=== PATIENT | male | born 1945 | race Hispanic/Latino ===

== ENCOUNTER 2018-03-23 10:56 | Outpatient (RCR) | payer MEDICARE | END 2018-04-09 | LOC: PT 10:56 | PROVIDERS: ATTEND Internal Medicine | DX: M45.2 Ankylosing spondylitis of cervical region (principal); M54.2 Cervicalgia; M53.82 Other specified dorsopathies, cervical region; M62.81 Muscle weakness (generalized); R26.9 Unspecified abnormalities of gait and mobility; R29.3 Abnormal posture; R26.81 Unsteadiness on feet | CPT/HCPCS: 97110 ×2; 97163; G8978; G8979 ==

== ENCOUNTER 2018-10-20 11:34 | Emergency (ER) | payer MEDICARE ==
[~2018-10-20] VITALS: Ht 170.2 cm; Wt 68.0 kg
[2018-10-20 12:48] LABS: BASOPHILS % 0.2 % (0.0-1.0); EOSINOPHILS # (AUTO) 0.1 (0.0-0.4); EOSINOPHILS % 1.1 % (0.0-6.0); HEMATOCRIT 35.8 % (38.2-49.6); HEMOGLOBIN 10.5 g/dL (14.0-18.0); LYMPHOCYTES # (AUTO) 0.9 (1.0-3.2); LYMPHOCYTES % 9.6 % (18.0-39.1); MEAN CORPUSCULAR HEMOGLOBIN 21.4 pg (28-32); MEAN CORPUSCULAR HGB CONC 29.3 g/dL (31-35); MEAN CORPUSCULAR VOLUME 72.9 fL (81-99); MONOCYTES # (AUTO) 0.8 (0.2-0.8); MONOCYTES % 8.5 % (4.4-11.3); NEUTROPHILS # (AUTO) 7.2 (2.1-6.9); NEUTROPHILS % 80.4 % (38.7-80.0); PLATELET COUNT 140 x10e3/uL (140-360); RED BLOOD COUNT 4.91 x10e6/uL (4.3-5.7); RED CELL DISTRIBUTION WIDTH 23.7 % (11.7-14.4)
[2018-10-20] MEDS ORDERED: ONDANSETRON HCL INJ 2MG/ML 2ML 2 MG/ML VIAL IV STA (12:50)
[2018-10-20] MEDS ORDERED: HYDROMORPHONE 2MG/ML 2 MG/ML ML IV ONE (13:00)
[2018-10-20] MEDS ORDERED: DIATRIZOATE MEGL/DIATRIZOA SOD 30 ML BTL PO ONE (13:05)
[2018-10-20 14:08] LABS: ALBUMIN 3.3 g/dL (3.5-5.0); ALBUMIN/GLOBULIN RATIO 0.7 (0.8-2.0); ANION GAP 14.1 mmol/L (8-16); CALCIUM 9.8 mg/dL (8.4-10.2); CREATININE, SERUM 5.28 mg/dL (0.72-1.25); POTASSIUM 4.1 mmol/L (3.5-5.1)
[2018-10-20 14:28] LABS: AMYLASE 95 U/L (25-125); LIPASE 36 U/L (8-78)
--- NOTE | 2018-10-20 17:08 | Diagnostic Imaging Report ---
EXAM: CT ABDOMEN AND PELVIS without IV CONTRAST DATE: 10/20/2018 Time stamp on Exam: 2:35 PM INDICATION: Abdominal pain COMPARISON: None TECHNIQUE: The abdomen and pelvis were scanned using a multidetector helical scanner. Coronal and sagittal reformations were obtained. Routine protocol performed. Technique manipulation was accomplished to maintain the lowest dose possible to the patient. IV Contrast: None Oral Contrast: Gastrografin intermixed with water Radiation Dose: Total DLP 341.91 mGy*cm Estimated effective dose: DLP x 0.015 x size factor FINDINGS: LOWER THORAX: No consolidations or nodules. Mitral annulus calcification. Tiny bilateral pleural effusions. Bibasilar atelectasis and increased pulmonary vascularity. LIVER: No masses BILIARY: The gallbladder is unremarkable. No ductal dilatation. SPLEEN: No masses PANCREAS: No masses ADRENALS: No nodules KIDNEYS: Small bilateral atrophic kidneys. GI TRACT: No distention, wall thickening or evidence of obstruction. There is a duodenal diverticulum. VESSELS: Vascular calcification. PERITONEUM/RETROPERITONEUM: No free air or fluid LYMPH NODES: No lymphadenopathy REPRODUCTIVE ORGANS: Massive prostate enlargement measuring up to 6.7 cm. BLADDER: Bladder wall thickening with a Brady catheter present. SOFT TISSUES: Bilateral fat-containing inguinal hernias. BONES: No suspicious bone lesions. IMPRESSION: 1. Massive prostate enlargement. 2. Diffuse urinary bladder wall thickening. 3. Small atrophic kidneys compatible with end-stage renal disease. Signed by: Dr. Tyrese Gonzalez DO on 10/20/2018 5:05 PM
--- NOTE | 2018-10-20 17:10 | NUR ---
RECEIVED REPORT FROM MIGEL ARREOLA. ASSUMED CARE AT THIS TIME, RESTING IN STRETCHER, BREATHING EVEN/UNLABORED, NO NEEDS VOICED AT THIS TIME.
[2018-10-20] MEDS ORDERED: HYDRALAZINE HCL 20 MG/ML VIAL IV STA (17:35)
[2018-10-20 18:07] VITALS: BP 140/47
== END 2018-10-20 18:45 | disposition home or self-care (01) ==
LOC: ER 11:34
DX: R10.32 Left lower quadrant pain (principal); N30.21 Other chronic cystitis with hematuria; E11.22 Type 2 diabetes mellitus with diabetic chronic kidney disease; I12.0 Hypertensive chronic kidney disease with stage 5 chronic kidney disease or end stage renal disease; N18.6 End stage renal disease; E78.5 Hyperlipidemia, unspecified
CPT/HCPCS: 36415; 74176; 80053; 82150; 83690; 85025; 93005; 99284; J0360; J1170; J2405

== ENCOUNTER → 2019-04-26 | Outpatient (CLI) | payer MEDICARE, OTHER ==
[~2019-04-26] MED LIST: AMLODIPINE BESY10 MG PO; B1 PO; CARVEDILOL12.5 MG PO; CLONIDINE HCL0.1 MG PO; FOLIC ACID-VIT1 EAC1 PO; GABAPENTIN100 MG PO; HYDRALAZINE HCL25 MG PO; HYDROXYCHLOROQ200 MG PO; LOSARTAN POTAS100 MG PO; NIFEDIPINE ER30 M1 PO; OMEPRAZOLE40 MG PEG; PRAVASTATIN SOD20 MG PO; SENEXON-S 50-81 EACH PO; TYLENOL WITH C1 EACH PO
--- NOTE | 2019-04-26 15:36 | Diagnostic Imaging Report ---
EXAM: US ABDOMEN COMPLETE DATE: 04/26/2019 2:29 PM INDICATION: Left upper quadrant pain COMPARISON: CT abdomen/pelvis without contrast from 10/20/2018 FINDINGS: The pancreas is not well-visualized secondary to prominent midline bowel gas. The liver is normal in size measuring 13.6 cm in length. Hepatic echogenicity is within normal limits. No focal hepatic abnormalities identified. The main portal vein is patent with antegrade flow and diameter of 1.0 cm, within normal limits. The gallbladder is unremarkable without evidence for shadowing stones, wall thickening, or pericholecystic fluid. There is no intra or extra hepatic biliary ductal dilatation. The common bile duct measures 5 mm. Sonographic Nguyen's sign is negative. The spleen is normal in size measuring 11.1 cm in length and demonstrates an unremarkable atrophic appearance. The kidneys are atrophic measuring 7.0 cm in length on the right and 7.0 cm in length and left with cortical thinning noted bilaterally. There is no evidence for solid renal mass, hydronephrosis, or shadowing calculi. The IVC and aorta are not well-visualized secondary to prominent midline bowel gas. There is no ascites present. IMPRESSION: Atrophic kidneys. Otherwise, unremarkable abdominal ultrasound examination, noting limited evaluation of midline structures secondary to prominent overlying bowel gas. Signed by: Dr. Rey Cabello MD on 04/26/2019 3:33 PM
== END ==
LOC: US 09:49
PROVIDERS: ATTEND Internal Medicine
DX: R10.12 Left upper quadrant pain (principal)
CPT/HCPCS: 76700

== ENCOUNTER 2019-05-01 14:54 | Inpatient (IN) | payer MEDICARE, OTHER ==
[~2019-05-01] VITALS: Ht 170.2 cm; Wt 67.1 kg
--- OUTSIDE RECORDS SUMMARY | 2019-05-01 14:55 | XMS REPORT ---
Author Author [facility] Organization [facility] Address Unknown Phone Unavailable Care Team Providers Care Chuck Splitter Name Role Phone Kashmir SORENSEN Unavailable Unavailable Gabriella BELL Unavailable Unavailable Payers Payer Name Policy Type Policy Number Effective Date Expiration Date Problems This patient has no known problems. Allergies, Adverse Reactions, Alerts Allergy Name Allergy Type Status Severity Reaction(s) Onset Date Inactive Date Treating Clinician Comments No Known Allergies DA Active U 2017-12-14 00:00:00 Medications This patient has no known medications. Encounters Start Date/Time End Date/Time Encounter Type Admission Type Attending Clinicians Care Facility Care Department Encounter ID 2018-10-21 02:21:00 2018-10-21 02:21:00 Outpatient [facility] [id number] Results Test Description Test Time Test Comments Text Results Atomic Results Result Comments US ABDOMEN COMPLETE 2019-04-26 15:30:[address] [address] Patient Name: Mikki JOHNSON MR #: [id number] : 1945 Age/Sex: 73/M Req #: [id number] Adm Physician: Ordered by: CESAR SORENSEN MD Report #: [id number] Location: US Room/Bed: Procedure: [id number] US/US ABDOMEN COMPLETE Exam Date: 04/26/19 Exam Time: 1445 REPORT STATUS: Signed EXAM: US ABDOMEN COMPLETE DATE: 04/26/2019 2:29 PM INDICATION: Left upper quadrant pain COMPARISON: CT abdomen/pelvis without contrast from 10/20/2018 FINDINGS: The pancreas is not well-visualized secondary to prominent midline bowel gas. The liver is normal in size measuring 13.6 cm in length. Hepatic echogenicity is within normal limits. No focal hepatic abnormalities identified. The main portal vein is patent with antegrade flow and diameter of 1.0 cm, within normal limits. The gallbladder is unremarkable without evidence for shadowing stones, wall thickening, or pericholecystic fluid. There is no intra or extra hepatic biliary ductal dilatation. The common bile duct measures 5 mm. Sonographic Nguyen's sign is negative. The spleen is normal in size measuring 11.1 cm in length and demonstrates an unremarkable atrophic appearance. The kidneys are atrophic measuring 7.0 cm in length on the right and 7.0 cm in length and left with cortical thinning noted bilaterally. There is no evidence for solid renal mass, hydronephrosis, or shadowing calculi. The IVC and aorta are not well-visualized secondary to prominent midline bowel gas. There is no ascites present. IMPRESSION: Atrophic kidneys. Otherwise, unremarkable abdominal ultrasound examination, noting limited evaluation of midline structures secondary to prominent overlying bowel gas. Signed by: Dr. Rey Cabello MD on 04/26/2019 3:33 PM Dictated By: REY CABELLO MD 1533 Transcribed By: EULOGIO on 04/26/19 1533 COPY TO: CESAR SORENSEN MD CT ABDOMEN/PELVIS WO 2018-10-20 16:56:00 [place] [address] Patient Name: Mikki JOHNSON MR #: [id number] : 1945 Age/Sex: 73/M Req #: [id number] Adm Physician: Ordered by: CLAUDIA BELL MD Report #: [id number] Location: ER Room/Bed: Procedure: [id number] CT/CT ABDOMEN/PELVIS WO Exam Date: 10/20/18 Exam Time: 1509 REPORT STATUS: Signed EXAM: CT ABDOMEN AND PELVIS without IV CONTRAST DATE: 10/20/2018 Time stamp on Exam: 2:35 PM INDICATION: Abdominal pain COMPARISON: None TECHNIQUE: The abdomen and pelvis were scanned using a multidetector helical scanner. Coronal and sagittal reformations were obtained. Routine protocol performed. Technique manipulation was accomplished to maintain the lowest dose possible to the patient. IV Contrast: None Oral Contrast: Gastrografin intermixed with water Radiation Dose: Total DLP 341.91 mGy*cm Estimated effective dose: DLP x 0.015 x size factor FINDINGS: LOWER THORAX: No consolidations or nodules. Mitral a nnulus calcification. Tiny bilateral pleural effusions. Bibasilar atelectasis and increased pulmonary vascularity. LIVER: No masses BILIARY: The gallbladder is unremarkable. No ductal dilatation. SPLEEN: No masses PANCREAS: No masses ADRENALS: No nodules KIDNEYS: Small bilateral atrophic kidneys. GI TRACT: No distention, wall thickening or evidence of obstruction. There is a duodenal diverticulum. VESSELS: Vascular calcification. PERITONEUM/RETROPERITONEUM: No free air or fluid LYMPH NODES: No lymphadenopathy REPRODUCTIVE ORGANS: Massive prostate enlargement measuring up to 6.7 cm. BLADDER: Bladder wall thickening with a Brady catheter present. SOFT TISSUES: Bilateral fat-containing inguinal hernias. BONES: No suspicious bone lesions. IMPRESSION: 1. Massive prostate enlargement. 2. Diffuse urinary bladder wall thickening. 3. Small atrophic kidneys compatible with end-stage renal disease. Signed by: Dr. Brynn Gonzalez DO on 10/20/2018 5:05 PM Dictated By: BRYNN GONZALEZ DO 04 Transcribed By: EULOGIO on 10/20/181704 COPY TO: CLAUDIA BELL MD
[2019-05-01] MEDS ORDERED: ALBUTEROL/IPRATROPIUM 3 ML NEB NEB ONE (15:15)
--- NOTE | 2019-05-01 15:21 | NUR ---
PATIENT TO ROOM 1521. R.T.CALLED FOR BREATHING TX
--- NOTE | 2019-05-01 15:41 | NUR ---
PATIENT BREATHING TX COMPLETE
[2019-05-01] MEDS ORDERED: HYDRALAZINE HCL 20 MG/ML VIAL IV ONE (15:45)
[2019-05-01 15:59] LABS: BASOPHILS % 0.5 % (0.0-1.0); EOSINOPHILS # (AUTO) 0.2 (0.0-0.4); EOSINOPHILS % 2.9 % (0.0-6.0); HEMATOCRIT 38.5 % (38.2-49.6); HEMOGLOBIN 11.5 g/dL (14.0-18.0); LYMPHOCYTES # (AUTO) 1.1 (1.0-3.2); MEAN CORPUSCULAR HEMOGLOBIN 24.9 pg (28-32); MEAN CORPUSCULAR HGB CONC 29.9 g/dL (31-35); MEAN CORPUSCULAR VOLUME 83.5 fL (81-99); MONOCYTES # (AUTO) 0.6 (0.2-0.8); MONOCYTES % 8.6 % (4.4-11.3); NEUTROPHILS # (AUTO) 4.7 (2.1-6.9); NEUTROPHILS % 71.7 % (38.7-80.0); PLATELET COUNT 150 x10e3/uL (140-360); RED BLOOD COUNT 4.61 x10e6/uL (4.3-5.7); RED CELL DISTRIBUTION WIDTH 19.2 % (11.7-14.4)
[2019-05-01 16:08] LABS: INR 0.94; PROTHROMBIN TIME 13.1 seconds (11.9-14.5)
[2019-05-01 16:09] LABS: PARTIAL THROMBOPLASTIN TIME 31.8 seconds (23.8-35.5)
[2019-05-01 16:18] LABS: ALBUMIN 3.5 g/dL (3.5-5.0); ALBUMIN/GLOBULIN RATIO 0.9 (0.8-2.0); ANION GAP 20.9 mmol/L (8-16); CALCIUM 9.2 mg/dL (8.4-10.2); CREATININE, SERUM 7.65 mg/dL (0.72-1.25); POTASSIUM 5.9 mmol/L (3.5-5.1)
[2019-05-01 16:25] LABS: CREATINE KINASE MB 1.9 ng/mL (0-5.0)
[2019-05-01] MEDS ORDERED: CLONIDINE HCL 0.1 MG TAB PO ONE (16:30)
--- NOTE | 2019-05-01 16:31 | Diagnostic Imaging Report ---
EXAMINATION: PA and lateral views of the chest. COMPARISON: None CLINICAL HISTORY: Shortness of breath for a few weeks DISCUSSION: Lines/tubes: None. Lungs: Lungs are well-inflated. Mild bilateral interstitial opacities extending from the rebeca consistent with interstitial pulmonary edema.. Bilateral basal compressive atelectasis. Pleura: Bilateral small pleural effusions. Heart and mediastinum: Prominent cardiac silhouette , which may be partly due to AP projection. Central pulmonary venous congestion Bones and soft tissues: No acute bony abnormalities. Degenerative changes in the thoracic spine. Partially visualized fusion hardware in the lower cervical/upper thoracic spine. Degenerative changes in bilateral glenohumeral joints. IMPRESSION: Findings likely represent decompensated CHF. Signed by: Dr. Sreekanth Cartwright M.D. on 05/01/2019 4:27 PM
[2019-05-01] MEDS ORDERED: SODIUM CHLORIDE FLUSH 10 ML SYR INJ PRN (18:15)
[2019-05-01] MEDS ORDERED: DEXTROSE 50% SYRINGE 50 ML IV PRN (19:15)
[2019-05-01] MEDS ORDERED: SOD POLYSTYRENE SULFONATE SUSP 15 GM/60 ML BTL PO ONE (19:15)
--- NOTE | 2019-05-01 19:18 | NUR ---
Collin SORENSEN IN ER EVALUATING PATIENT. HE IS COVERING FOR Felipa SORENSEN
[2019-05-01 19:45] VITALS: BP 202/70
[2019-05-01] MEDS: HYDRALAZINE HCL 20 MG/ML VIAL IV PRN (20:45)
[2019-05-01] MEDS: INSULIN REGULAR, HUMAN 100 UNIT/1 ML 3ML VIAL SQ SCH (20:55)
[2019-05-01 21:55] VITALS: BP 170/70
[2019-05-01] MEDS ORDERED: PRAVASTATIN SOD20 MG PO (23:16)
[2019-05-01] MEDS ORDERED: B1 PO (23:16)
[2019-05-01] MEDS ORDERED: CARVEDILOL12.5 MG PO (23:16)
[2019-05-01] MEDS ORDERED: CLONIDINE HCL0.1 MG PO (23:16)
[2019-05-01] MEDS ORDERED: HYDROXYCHLOROQ200 MG PO (23:16)
[2019-05-01] MEDS ORDERED: NIFEDIPINE ER30 M1 PO (23:16)
[2019-05-01] MEDS ORDERED: AMLODIPINE BESY10 MG PO (23:16)
[2019-05-01] MEDS ORDERED: SENEXON-S 50-81 EACH PO (23:16)
[2019-05-01] MEDS ORDERED: LOSARTAN POTAS100 MG PO (23:16)
[2019-05-01] MEDS ORDERED: GABAPENTIN100 MG PO (23:16)
[2019-05-01] MEDS ORDERED: OMEPRAZOLE40 MG PEG (23:16)
[2019-05-01] MEDS ORDERED: TYLENOL WITH C1 EACH PO (23:16)
[2019-05-01] MEDS ORDERED: FOLIC ACID-VIT1 EAC1 PO (23:16)
[2019-05-01] MEDS ORDERED: HYDRALAZINE HCL25 MG PO (23:16)
[2019-05-02] VITALS (10 sets, daily range): BP systolic 154–213; BP diastolic 64–85
[2019-05-02 00:48] LABS: CREATINE KINASE 38 IU/L (30-200)
--- NOTE | 2019-05-02 01:59 | History and Physical ---
CHIEF COMPLAINT: Shortness of breath and very high blood pressure. HISTORY OF PRESENT ILLNESS: This is a 73-year-old male with past medical history of end-stage renal disease, on hemodialysis, diabetes mellitus, hypertension, hyperlipidemia, GERD, diabetic neuropathy. He was in his restroom until the patient has increasing shortness of breath yesterday and today and a very high blood pressure. No headache. No dizziness. No chest pain. No abdominal pain. No nausea, no vomiting. No hematochezia. No melena. No leg swelling. No backache. No burning urination. ALLERGIES: NO KNOWN DRUG ALLERGIES. PAST MEDICAL HISTORY: 1. Diabetes mellitus, type 2. 2. Hypertension. 3. Hyperlipidemia. 4. GERD. 5. End-stage renal disease, on hemodialysis. 6. Diabetic neuropathy. PAST SURGICAL HISTORY: History of C-spine surgery. HABITS: Denies smoking. Denies alcohol use. Denies illicit drug use. MEDICATIONS: Medication list attached. FAMILY HISTORY: Not available. REVIEW OF SYSTEMS: CONSTITUTIONAL: Denies fatigue or weakness. HEENT: No diplopia. No blurring of vision. CARDIOPULMONARY: No chest pain. Has some shortness of breath. No cough. ALIMENTARY SYSTEM: No nausea or vomiting. No diarrhea. No constipation. GENITOURINARY SYSTEM: No dysuria. No hematuria. MUSCULOSKELETAL: No joint pain. CENTRAL NERVOUS SYSTEM: No focal weakness. PHYSICAL EXAMINATION: GENERAL: This is a 73-year-old male, who is alert and oriented x3, in no gross distress. VITAL SIGNS: Temperature 98.2, pulse 80, respiratory rate 18, and blood pressure 130/80. HEENT: Head is atraumatic and normocephalic. Pupils bilaterally equal to light. Extraocular muscles intact. NECK: Supple. No JVD. No carotid bruit. LUNGS: Air entry fair. Bilateral rhonchi bilaterally. ABDOMEN: Soft, nontender. No guarding. No rigidity. EXTREMITIES: No pedal edema. Peripheral pluses +1. AUTOMOBILE BODY REPAIRER: Grossly nonfocal. LABORATORY DATA: Potassium 5.6. ASSESSMENT: 1. Shortness of breath, may be from volume overload, may be from congestive heart failure. 2. Uncontrolled hypertension. 3. Diabetes mellitus, type 2. 4. Gastroesophageal reflux disease. 5. Diabetic neuropathy. 6. Hyperlipidemia. PLAN: Admit the patient to medical floor. Nephrology consult with Dr. Jenkins and Cullen. The patient may need dialysis. Kayexalate now, hydralazine, and clonidine p.r.n. for hypertension. Continue all home medicine. Case discussed with the ER doctor. Case discussed with the patient, total condition, and prognosis. MD SALLY Stewart/SCOTT /[id number]
[2019-05-02] MEDS: HYDRALAZINE HCL 20 MG/ML VIAL IV PRN ×2 (05:33→17:15)
[2019-05-02] MEDS: CLONIDINE HCL 0.1 MG TAB PO PRN ×2 (06:41→15:23)
--- NOTE | 2019-05-02 07:00 | NUR ---
RECEIVED PATIENT ASLEEP AT THIS TIME NO S/S OF DISTRESS. BED LOW, WHEELS LOCKED, SIDE RAILS X2. CALL LIGHT IN REACH WILL CONTINUE TO MONITOR PATIENT.
[2019-05-02] MEDS: INSULIN REGULAR, HUMAN 100 UNIT/1 ML 3ML VIAL SQ SCH ×4 (07:30→20:04)
[2019-05-02 08:06] LABS: BASOPHILS % 0.7 % (0.0-1.0); EOSINOPHILS # (AUTO) 0.2 (0.0-0.4); EOSINOPHILS % 2.9 % (0.0-6.0); HEMATOCRIT 36.7 % (38.2-49.6); HEMOGLOBIN 10.9 g/dL (14.0-18.0); LYMPHOCYTES # (AUTO) 0.9 (1.0-3.2); LYMPHOCYTES % 15.8 % (18.0-39.1); MEAN CORPUSCULAR HEMOGLOBIN 24.7 pg (28-32); MEAN CORPUSCULAR HGB CONC 29.7 g/dL (31-35); MEAN CORPUSCULAR VOLUME 83.2 fL (81-99); MONOCYTES # (AUTO) 0.6 (0.2-0.8); MONOCYTES % 9.4 % (4.4-11.3); NEUTROPHILS # (AUTO) 4.2 (2.1-6.9); NEUTROPHILS % 70.9 % (38.7-80.0); PLATELET COUNT 164 x10e3/uL (140-360); RED BLOOD COUNT 4.41 x10e6/uL (4.3-5.7); RED CELL DISTRIBUTION WIDTH 19.5 % (11.7-14.4)
[2019-05-02 08:32] LABS: ANION GAP 20.3 mmol/L (8-16); CALCIUM 8.9 mg/dL (8.4-10.2); CREATININE, SERUM 8.84 mg/dL (0.72-1.25); POTASSIUM 5.3 mmol/L (3.5-5.1)
--- NOTE | 2019-05-02 10:05 | NUR ---
SPOKE WITH CONSULT, DR. CABRAL. PATIENT TO HAVE STAT DIALYSIS. DIALYSIS CENTER CALLED AND MADE AWARE.
--- NOTE | 2019-05-02 10:25 | NUR ---
PATIENT SIGNED CONSENT FOR DIALYSIS. CULTURAL LINK USED FOR INTERPRETATION. JOSE Quiroz #[id number].
[2019-05-02] MEDS ORDERED: SODIUM CHLORIDE 0.9% 1000ML 2,000 ML ONE (11:47)
--- NOTE | 2019-05-02 12:37 | NUR ---
Nutrition Screen Note RD Recommendation for Physician: -Continue current diet per MD. Plan of Care: RD following, monitoring for tolerance and adequacy. Educational handout provided. Nutrition reason for involvement: Diagnosis- CHF Primary Diagnose(s):CHF PMH: end-stage renal disease, on hemodialysis, diabetes mellitus, hypertension, hyperlipidemia, GERD, diabetic neuropathy. Ht: 67 in Wt: 153 lb BMI:24 kg/m2 IBW: [address] Assessment: 05/02: 73 YOM admitted for CHF with PMH listed above. The pt is [place] speaking, used cultural link and INDUSTRIAL MAINTENANCE TECHNICIAN to help translate. Pt was seen consuming his breakfast without any difficulty. He denied a poor appetite and denied any nausea, LBM: 05/02. Pt was given educational handout regarding low Na diet in [place]. Pt denied any food allergies. Plan is for dialysis today. Chart reviewed. Labs and meds reviewed. BS was low this moring- was given juice and ate breakfast-POC GM is now 133. Will continue to monitor. Current Diet: renal DM Malnutrition Evaluation (05/02) The patient does not meet criteria for a specified degree of malnutrition at this time. Will re-evaluate at follow-up as appropriate. Diet Education Needs Assessment: Diet education indicated, pt accepted handout. Diet Adequacy: (Meeting calorie needs, Meeting protein needs Learner(s): pt Barriers: none Cultural/Language Modifications:pt speaks [place], wood experimental mechanic was used Readiness: acceptance Method: discussion, handout Topics: Low Na Diet Understanding/Compliance: verbalized understanding, anticipate fair compliance Nutrition Care Level: low Signed: Verena Flynn, RD, LD
--- NOTE | 2019-05-02 15:35 | NUR ---
WOUND CARE CONSULT FOR 47 YO FEMALE CA, PULMONARY EMBOLISM DELFINA 15 ON MODERATE PUP AND ALTERNATING PRESSURE SKIN ASSESSMENT COMPLETE PATIENT PRESENTS WITH HEALING STAGE 2 ULCERATION .5CM X.5CM X .1CM RECOMMENDATIONS : NURSING TO CONTINUE TO MAINTAIN MODERATE PUP STATUS AND INTERVENTIONS AND ALTERNATING PRESSURE SURFACE NURSING TO CONTINUE TO ASSIST PATIENT OUT OF BED FOR MEALS AND MUCH TOLERATED NURSING TO APPLY DAILY VENELEX OINTMENT TO HEALING SACRAL STAGE 2 ULCERATION AND COVER WITH ALLEVYN FOAM DRESSING Addendum: 05/02/19 at 1542 by Enrique Ross RN Amended: Links added.
[2019-05-02] MEDS ORDERED: BALSAM PERU/CASTOR OIL 60 GM OINT...G. TP SCH (17:00)
[2019-05-02 17:35] LABS: CHOL/HDL RATIO 3.9 (3.9-4.7)
[2019-05-02 17:54] LABS: THYROID STIMULATING HORMONE 1.07 uIU/mL (0.350-4.940)
--- NOTE | 2019-05-02 17:54 | Consultation ---
DATE OF CONSULTATION: 05/02/2019 REASON FOR CONSULTATION: CHF. CHIEF COMPLAINT: Shortness of breath. HISTORY OF PRESENT ILLNESS: This is a 73-year-old male with history of diabetes, hypertension, hyperlipidemia, end-stage renal disease on HD therapy for 12 years, diabetic neuropathy, and reflux disease. The patient presents to [facility] ER with complaints of shortness of breath and elevated blood pressure. On arrival, blood pressure 239/102. Chest x-ray showing pulmonary edema, volume overloaded. The patient started on HD therapy. Cardiology was consulted for CHF. The patient is seen in room. Reports has been compliant with the dialysis, however, last dialysis reported on Thursday and over the weekend, was not compliant with his oral intake. Started to feel short of breath on Thursday, therefore he came to the hospital for further evaluation. BNP of note was over 6000 and chest x-ray again showing pulmonary edema. The patient reports now that he is on dialysis, feels much better. Breathing is much easier. The patient denies any chest pains, however, does report he feels very short of breath with minimal activities. PAST MEDICAL HISTORY: Diabetes, hypertension, hyperlipidemia, end-stage renal disease for 12 years Thursday, Thursday, Thursday, neuropathy, and reflux disease. PAST SURGICAL HISTORY: C-spine surgery and left AV fistula. SOCIAL HISTORY: He is . He is disabled. No alcohol or tobacco use. FAMILY HISTORY: Mother of unknown cause. Father with diabetes. ALLERGIES: NO KNOWN ALLERGIES. HOME MEDICATIONS: Include amlodipine 10 mg daily, carvedilol 12.5 mg b.i.d., clonidine 0.1 mg t.i.d. as needed, gabapentin 100 mg t.i.d., hydralazine 50 mg q.12, hydroxychloroquine 200 mg twice a week, losartan 100 mg daily, nifedipine ER 60 mg daily, omeprazole 40 mg daily, and pravastatin 20 mg daily. REVIEW OF SYSTEMS: GENERAL: Denies any weight changes, fatigue, weakness, fevers, chills, or night sweats. SKIN: No rashes or sores. HEENT: Denies any nausea, vomiting, blurry vision, dizziness, earaches, tinnitus, epistaxis, sore throat, or swollen neck. CARDIAC: Denies any chest pain, however, dyspnea on exertion. Positive for orthopnea. Positive for PND. Denies any lower extremity edema. RESPIRATORY: Positive shortness of breath. Positive for productive cough. Denies any hemoptysis. GI: Denies any nausea, vomiting, diarrhea, constipation, melena, hematochezia, bloody or tarry stools. VASCULAR: Denies any lower extremity edema or claudication. MUSCULOSKELETAL: Reports generalized muscle weakness and joint pains, back pains. NEUROLOGIC: Positive for numbness and tingling in lower extremities. Denies any paralysis, weakness, fainting, or seizures. HEMATOLOGY: Denies any bruising or anemia. ENDOCRINE: Denies any heat or cold intolerance, polyuria, polydipsia, or polyphagia. PHYSICAL EXAMINATION: VITAL SIGNS: Height 67 inches, weight 152 pounds, BMI 24, temperature 97.0, pulse 66, respiratory rate 20, blood pressure 183/79, and pulse ox 100% on 2 L nasal cannula. GENERAL: Poor historian. No acute distress. Also appears chronically ill. SKIN: No rashes or bruises noted. HEENT: Normocephalic. Pupils are equal and reactive. Extraocular movements intact. Trachea midline. Oral mucosa pink. No JVD. No carotid bruit noted. HEART: Regular rate and rhythm. No murmurs, rubs, clicks, or gallops. PMI 4th, 5th intercostal space. LUNGS: Bilateral breath sounds at bases with crackles. No wheezes noted. ABDOMEN: Soft, nontender, and nondistended. No organomegaly noted. MUSCULOSKELETAL: Good muscle strength throughout. No lower extremity edema. VASCULAR: +2 bilateral radial pulses, +1 DP, PT pulses bilaterally. Also left upper extremity AV fistula with positive bruit and thrill. NEUROLOGIC: Cranial nerves 2 through 12 seem intact. LABORATORY DATA: Sodium 141, potassium 5.9, chloride 99, bicarb 27, BUN 47, creatinine 7.6, and glucose 118. BNP 6,740. Troponin 0.041, next less than 0.05, next 0.079. White count 5, hemoglobin 11, hematocrit 38, and platelets 150. PT 13, INR 0.9, and PTT 31.8. Chest x-ray showing interstitial pulmonary edema. ASSESSMENT AND PLAN: 1. Volume overload. 2. End-stage renal disease. 3. Hypertensive urgency. 4. Hyperlipidemia. 5. Diabetes. 6. Anginal equivalent symptoms in the patient with very likely has coronary artery disease. PLAN: 1. The patient presents to [facility] with complaints of shortness of breath, hypertensive, volume overload, has been started on HD therapy. Reports breathing much better since HD therapy has been started. However, the patient does report anginal equivalent symptoms, very likely the patient has CAD given his multiple risk factors. 2. We will get echo to evaluate heart function and structure. 3. We will go ahead and do a nuclear stress test in the a.m. 4. Obtain lipid and TSH level. 5. Continue telemonitoring. 6. Antihypertensive therapy. 7. Further recommendations as clinical course dictates. Thank you very much for this consult. SEEN AND EXAMINED AGREE WITH NOTE Dictated by Cameron Grover NP Mansi Good MD DC/SCOTT /[id number] KEHINDE
[2019-05-02 17:58] LABS: CREATINE KINASE 48 IU/L (30-200)
--- NOTE | 2019-05-02 20:17 | Diagnostic Imaging Report ---
EXAM: Abdomen 2 Views INDICATION: ^PAIN ^[id number] ^[id number] COMPARISON: Abdominal ultrasound 04/26/[address] abdomen and pelvis 10/20/2018, chest radiograph 05/01/2019 FINDINGS: Lines/tubes: None. Moderate amount of stool in the colon. No dilated loops of small bowel. No renal calculi. No abnormal soft tissue masses. Mild degenerative changes in the lumbar spine and pelvis. Small left pleural effusion. IMPRESSION: No acute abnormalities. Signed by: Dr. Samantha Alvarado M.D. on 05/02/2019 8:14 PM
[2019-05-03 00:37] VITALS: BP 167/73
[2019-05-03 04:00] VITALS: BP 224/86
[2019-05-03] MEDS: CLONIDINE HCL 0.1 MG TAB PO PRN ×2 (04:49→12:16)
[2019-05-03 05:42] LABS: BASOPHILS % 0.4 % (0.0-1.0); EOSINOPHILS # (AUTO) 0.1 (0.0-0.4); EOSINOPHILS % 2.6 % (0.0-6.0); HEMATOCRIT 38.2 % (38.2-49.6); HEMOGLOBIN 11.4 g/dL (14.0-18.0); LYMPHOCYTES # (AUTO) 1.2 (1.0-3.2); LYMPHOCYTES % 22.7 % (18.0-39.1); MEAN CORPUSCULAR HEMOGLOBIN 24.8 pg (28-32); MEAN CORPUSCULAR HGB CONC 29.8 g/dL (31-35); MEAN CORPUSCULAR VOLUME 83.2 fL (81-99); MONOCYTES # (AUTO) 0.7 (0.2-0.8); MONOCYTES % 14.6 % (4.4-11.3); NEUTROPHILS % 59.3 % (38.7-80.0); PLATELET COUNT 153 x10e3/uL (140-360); RED BLOOD COUNT 4.59 x10e6/uL (4.3-5.7); RED CELL DISTRIBUTION WIDTH 18.8 % (11.7-14.4)
[2019-05-03 06:08] LABS: ALBUMIN 3.2 g/dL (3.5-5.0); ALBUMIN/GLOBULIN RATIO 0.9 (0.8-2.0); ANION GAP 19.1 mmol/L (8-16); CREATININE, SERUM 4.82 mg/dL (0.72-1.25); POTASSIUM 5.1 mmol/L (3.5-5.1)
[2019-05-03] MEDS: INSULIN REGULAR, HUMAN 100 UNIT/1 ML 3ML VIAL SQ SCH ×2 (07:30→11:30)
[2019-05-03 08:04] VITALS: BP 182/76
[2019-05-03 08:05] VITALS: BP 182/76
[2019-05-03] MEDS ORDERED: REGADENOSON 0.4 MG/5 ML SYR IV ONE (08:06)
[2019-05-03 11:54] VITALS: BP 222/93
[2019-05-03] MEDS ORDERED: CLOPIDOGREL BISULFATE 75 MG TAB PO ONE (12:00)
--- NOTE | 2019-05-03 12:09 | Operative Report ---
DATE OF PROCEDURE: SURGEON: Mansi Good MD PROCEDURE: Nuclear cardiac stress test. ACQUISITION NUMBER: [id number] TECHNICAL DETAILS: This was Lexiscan nuclear cardiac stress test for the resting images. The patient was given a total of 11 mCi of Myoview. Half an hour after injection, proper SPECT imaging and scanning were done. For the stress images, the patient was given Lexiscan 0.4 mg intravenously followed by 33 mCi of Myoview. Proper SPECT imaging and scanning were done after the procedures. There were no complication and the patient tolerated the procedure. RESULTS: A. Hemodynamic or stress test; the protocol is Lexiscan. The patient's heart rate remained stable from 61 to 74 per minute. Blood pressure remained stable at 150/63. No EKG changes. B. Myocardial perfusion imaging or nuclear stress testing; 1. A. Myocardial perfusion;. a. a. Resting images. Resting images showed normal smooth distribution in the isotope in all segment. b. B. Stress images; showed abnormal uptake of the isotope in all the segment more noted in the inferior lateral and anterior segment with transit ischemic dilatation of the left ventricle. Segmental wall motion; there are no segmental wall motion abnormality. 1. B. Heart volume. Left ventricular ejection fraction of 52%. IMPRESSION: Very high risk nuclear cardiac stress testing with preserved left ventricular systolic function. RECOMMENDATION: Cardiac catheterization. MD JANIA Forbes/MODL /[id number]
[2019-05-03] MEDS ORDERED: HYDROCORTISONE 1% CREAM 30 GM TUBE TOP PRN (14:15)
[2019-05-03] MEDS ORDERED: HYDRALAZINE HCL 25 MG TAB PO SCH (15:00)
[2019-05-03 15:53] VITALS: BP 201/84
--- NOTE | 2019-05-03 16:41 | NUR ---
Via interpreting ipad device, patient and I discussed his plan of care which includes getting his prescriptions filled and start them today, call his pcp and hourly shift the or to follow up for a heart cath per recommendation from his hourly shift. Patient voiced understanding and was able to repeat back to me vis crop picker that he has to call back to md office to follow up and to get his prescriptions filled and take them as directed.
[2019-05-03] MEDS ORDERED: CARVEDILOL 3.125 MG TAB PO SCH (17:00)
--- NOTE | 2019-05-03 18:51 | Discharge Summary ---
This is a 73-year-old male patient of mine, who presented with complaint of shortness of breath and high blood pressure. ADMITTING IMPRESSION AND DIAGNOSES: 1. Volume overload with decompensated congestive heart failure with end-stage renal disease, on hemodialysis. 2. Diabetic neuropathy. 3. Hypertensive heart disease. 4. Hyperlipidemia. 5. Osteoarthritis. HOSPITAL COURSE SUMMARY: The patient was admitted with the above diagnoses. The patient had Nephrology and Cardiology consultations done. The patient had a stress test done, which was positive for multiple poor stress defect involving in inferior and apical area. So, the patient was recommended for cardiac catheterization and the patient probably might have triple-vessel disease. So, the patient electively scheduled for outpatient catheterization, as the patient wanted to go home for the [place]. The patient will be sent home on the Plavix and aspirin, and we will up the carvedilol dose. The patient to follow up as outpatient with me as well as Dr. Good to get outpatient catheterization and further treatment. Avery Rollins MD [facility]/MODL /[id number]
[2019-05-03] MEDS ORDERED: PRAVASTATIN 20 MG TAB PO SCH (21:00)
[2019-05-04] MEDS ORDERED: ASPIRIN 81 MG ENTERIC COATED PO SCH (09:00)
[2019-05-04] MEDS ORDERED: CLOPIDOGREL BISULFATE 75 MG TAB PO SCH (09:00)
[2019-05-04] MEDS ORDERED: NIFEDIPINE CR 30 MG TAB PO SCH (09:00)
--- NOTE | 2019-07-05 09:55 | EXERCISE STRESS TEST ---
DATE OF STUDY: 05/03/2019 00:00:00 Stress Test - Treadmill ONLY PROCEDURE: Nuclear cardiac stress test. ACQUISITION NUMBER: [id number] TECHNICAL DETAILS: This was Lexiscan nuclear cardiac stress test for the resting images. The patient was given a total of 11 mCi of Myoview. Half an hour after injection, proper SPECT imaging and scanning were done. For the stress images, the patient was given Lexiscan 0.4 mg intravenously followed by 33 mCi of Myoview. Proper SPECT imaging and scanning were done after the procedures. There were no complication and the patient tolerated the procedure. RESULTS: A. Hemodynamic or stress test; the protocol is Lexiscan. The patient's heart rate remained stable from 61 to 74 per minute. Blood pressure remained stable at 150/63. No EKG changes. B. Myocardial perfusion imaging or nuclear stress testing; 1. A. Myocardial perfusion;. a. a. Resting images. Resting images showed normal smooth distribution in the isotope in all segment. b. B. Stress images; showed abnormal uptake of the isotope in all the segment more noted in the inferior lateral and anterior segment with transit ischemic dilatation of the left ventricle. 2. B. Heart volume. Left ventricular ejection fraction of 52%. Segmental wall motion; there are no segmental wall motion abnormality. IMPRESSION: Very high risk nuclear cardiac stress testing with preserved left ventricular systolic function. RECOMMENDATION: Cardiac catheterization. MD JANIA Forbes/MODL /[id number]
== END 2019-05-03 16:40 | disposition home or self-care (01) | DRG 291 ==
LOC: ER 14:54 → ERHOLD 18:15 → MED/SURG 19:52
PROVIDERS: ADMIT Internal Medicine; ATTEND Internal Medicine
DX: I13.2 Hypertensive heart and chronic kidney disease with heart failure and with stage 5 chronic kidney disease, or end stage renal disease (principal); N18.6 End stage renal disease; I50.33 Acute on chronic diastolic (congestive) heart failure; E11.22 Type 2 diabetes mellitus with diabetic chronic kidney disease; Z99.2 Dependence on renal dialysis; E11.21 Type 2 diabetes mellitus with diabetic nephropathy; K21.9 Gastro-esophageal reflux disease without esophagitis; E78.5 Hyperlipidemia, unspecified; E11.40 Type 2 diabetes mellitus with diabetic neuropathy, unspecified; Z91.15 Patient's noncompliance with renal dialysis; I16.0 Hypertensive urgency
CPT/HCPCS: 36415; 71046; 74018; 78452; 80048; 80053; 80061; 82550; 82553; 82948; 83880; 84443; 84484; 85025; 85610; 85730; 86704; 86705; 86706; 87340; 90962; 93005; 93017; 93306; 94640; 99284; A9502; J0360; J1817; J7030

== ENCOUNTER 2020-11-14 06:43 | Inpatient (IN) | payer MEDICARE, OTHER ==
[~2020-11-14] VITALS: Ht 170.2 cm; Wt 67.1 kg
[2020-11-14 07:57] LABS: BASOPHILS % 0.4 % (0.0-1.0); EOSINOPHILS # (AUTO) 0.2 (0.0-0.4); EOSINOPHILS % 3.2 % (0.0-6.0); HEMATOCRIT 35.9 % (38.2-49.6); HEMOGLOBIN 11.2 g/dL (14.0-18.0); LYMPHOCYTES # (AUTO) 1.4 (1.0-3.2); LYMPHOCYTES % 27.9 % (18.0-39.1); MEAN CORPUSCULAR HEMOGLOBIN 27.7 pg (28-32); MEAN CORPUSCULAR HGB CONC 31.2 g/dL (31-35); MEAN CORPUSCULAR VOLUME 88.9 fL (81-99); MONOCYTES # (AUTO) 0.5 (0.2-0.8); MONOCYTES % 10.3 % (4.4-11.3); NEUTROPHILS # (AUTO) 2.9 (2.1-6.9); PLATELET COUNT 252 x10e3/uL (140-360); RED BLOOD COUNT 4.04 x10e6/uL (4.3-5.7); RED CELL DISTRIBUTION WIDTH 14.1 % (11.7-14.4)
[2020-11-14] MEDS ORDERED: SODIUM CHLORIDE 0.9% 250ML 250 ML ONE ×2 (08:17→21:53)
[2020-11-14] MEDS ORDERED: IOPAMIDOL 370 MG/ML 200 ML INFUS..BTL INJ ONE (08:17)
[2020-11-14 08:32] LABS: ALBUMIN 3.4 g/dL (3.5-5.0); ANION GAP 20.2 mmol/L (8-16); CALCIUM 8.5 mg/dL (8.4-10.2); CREATININE, SERUM 9.6 mg/dL (0.72-1.25); MAGNESIUM 2.6 MG/DL (1.3-2.1); POTASSIUM 5.2 mmol/L (3.5-5.1)
[2020-11-14 08:33] LABS: ALBUMIN/GLOBULIN RATIO 0.8 (0.8-2.0)
[2020-11-14 08:49] LABS: CLARITY,URINE TURBID (CLEAR); COLOR,URINE RED (YELLOW); KETONES,URINE 1+ (NEGATIVE); LEUKOCYTE ESTERASE ,URINE LARGE (NEGATIVE); NITRITE,URINE POSITIVE (NEGATIVE); PROTEIN,URINE DIPSTICK >=300 (NEGATIVE)
[2020-11-14 09:06] LABS: BACTERIA,URINE RARE /HPF; EPITHELIAL CELLS,URINE FEW /LPF; RBC,URINE >50 /HPF (0-5); WBC,URINE (MAN) 0-5 /HPF (0-5)
[2020-11-14] MEDS: PIPERACILLIN/TAZOBACTAM 2.25 GM in SODIUM CHLORIDE 0.9% 50ML 50 ML IV SCH ×2 (10:11→21:50)
[2020-11-14 10:16] LABS: INR 1.05; PROTHROMBIN TIME 14.3 seconds (11.9-14.5)
[2020-11-14] MEDS ORDERED: ONDANSETRON HCL INJ 2MG/ML 2ML 2 MG/ML VIAL IV PRN ×2 (10:30→14:30)
[2020-11-14] MEDS ORDERED: MORPHINE SULFATE INJ 4 MG/ML INJ 1ML IV PRN (10:30)
[2020-11-14 11:30] VITALS: BP 190/65
[2020-11-14 12:00] VITALS: BP 190/65
[2020-11-14] MEDS ORDERED: HYDRALAZINE HCL 20 MG/ML VIAL IV PRN ×2 (12:45→14:30)
[2020-11-14] MEDS ORDERED: ALBUTEROL/IPRATROPIUM 3 ML NEB NEB PRN (14:30)
[2020-11-14] MEDS ORDERED: LIDOCAINE 4% PATCH TP PRN (14:30)
[2020-11-14] MEDS ORDERED: CARVEDILOL 12.5 MG TAB PO SCH (14:30)
[2020-11-14] MEDS ORDERED: DIPHENHYDRAMINE HCL 25 MG CAP PO PRN (14:30)
[2020-11-14] MEDS ORDERED: POTASSIUM CHLORIDE 20 MEQ TAB CR PO PRN (14:30)
[2020-11-14] MEDS ORDERED: DEXTROSE 50% SYRINGE 50 ML IV PRN (14:30)
[2020-11-14] MEDS: GABAPENTIN 100 MG CAP PO SCH ×2 (15:00→21:50)
[2020-11-14] MEDS: HYDRALAZINE HCL 25 MG TAB PO SCH ×2 (15:00→21:50)
[2020-11-14] MEDS ORDERED: SODIUM CHLORIDE 0.9% 1000ML 2,000 ML ONE (15:27)
[2020-11-14] MEDS ORDERED: XYZAL5 MG PO (15:39)
[2020-11-14] MEDS ORDERED: LIPITOR20 MG PO (15:39)
[2020-11-14] MEDS ORDERED: ONDANSETRON ODT4 MG PO (15:39)
[2020-11-14] MEDS ORDERED: COREG6.25 MG PO (15:39)
[2020-11-14] MEDS ORDERED: CLONIDINE HCL0.2 MG PO (15:39)
[2020-11-14] MEDS ORDERED: FOLIC ACID-VIT1 EACH PO (15:39)
[2020-11-14] MEDS ORDERED: JANUVIA25 MG PO (15:39)
[2020-11-14 16:00] VITALS: BP 149/54
[2020-11-14] MEDS: CLONIDINE HCL 0.2 MG TAB PO SCH ×2 (16:15→21:50)
[2020-11-14] MEDS: INSULIN LISPRO 100 UNIT/1 ML 3ML VIAL SQ SCH ×2 (16:30→21:00)
[2020-11-14] MEDS: HYDROXYCHLOROQUINE SULFATE 200 MG TAB PO SCH (17:00)
[2020-11-14] MEDS: CARVEDILOL 3.125 MG TAB PO SCH (17:00)
[2020-11-14 20:36] VITALS: BP 153/62
[2020-11-14 21:00] VITALS: BP 153/62
[2020-11-14] MEDS ORDERED: MELATONIN 5 MG TABLET PO PRN (21:00)
[2020-11-14] MEDS: LORATADINE 10 MG TAB PO SCH (21:50)
[2020-11-14] MEDS: ATORVASTATIN 40 MG TAB PO SCH (21:50)
[2020-11-15] VITALS (10 sets, daily range): BP systolic 82–133; BP diastolic 37–73
[2020-11-15 05:34] LABS: BASOPHILS % 0.4 % (0.0-1.0); EOSINOPHILS # (AUTO) 0.1 (0.0-0.4); EOSINOPHILS % 2.1 % (0.0-6.0); HEMATOCRIT 29.8 % (38.2-49.6); HEMOGLOBIN 9.3 g/dL (14.0-18.0); LYMPHOCYTES # (AUTO) 1.3 (1.0-3.2); LYMPHOCYTES % 27.1 % (18.0-39.1); MEAN CORPUSCULAR HEMOGLOBIN 27.4 pg (28-32); MEAN CORPUSCULAR HGB CONC 31.2 g/dL (31-35); MEAN CORPUSCULAR VOLUME 87.9 fL (81-99); MONOCYTES # (AUTO) 0.5 (0.2-0.8); MONOCYTES % 11.5 % (4.4-11.3); NEUTROPHILS # (AUTO) 2.7 (2.1-6.9); NEUTROPHILS % 58.5 % (38.7-80.0); PLATELET COUNT 218 x10e3/uL (140-360); RED BLOOD COUNT 3.39 x10e6/uL (4.3-5.7); RED CELL DISTRIBUTION WIDTH 14.4 % (11.7-14.4)
[2020-11-15] MEDS: CARVEDILOL 3.125 MG TAB PO SCH ×2 (05:43→16:54)
[2020-11-15 06:17] LABS: ALBUMIN 2.7 g/dL (3.5-5.0); ALBUMIN/GLOBULIN RATIO 0.8 (0.8-2.0); ANION GAP 18.4 mmol/L (8-16); CALCIUM 7.9 mg/dL (8.4-10.2); CREATININE, SERUM 5.55 mg/dL (0.72-1.25); POTASSIUM 4.4 mmol/L (3.5-5.1)
[2020-11-15 06:32] LABS: CHOL/HDL RATIO 3.7 (3.9-4.7); MAGNESIUM 2.2 MG/DL (1.3-2.1); PHOSPHORUS 4.2 MG/DL (2.3-4.7)
[2020-11-15 06:46] LABS: THYROID STIMULATING HORMONE 1.04 uIU/mL (0.350-4.940)
[2020-11-15] MEDS: INSULIN LISPRO 100 UNIT/1 ML 3ML VIAL SQ SCH ×4 (07:30→19:21)
[2020-11-15] MEDS: PANTOPRAZOLE SOD 40 MG TABEC PO SCH (08:40)
[2020-11-15] MEDS: PIPERACILLIN/TAZOBACTAM 2.25 GM in SODIUM CHLORIDE 0.9% 50ML 50 ML IV SCH ×2 (08:40→20:50)
[2020-11-15] MEDS: HYDRALAZINE HCL 25 MG TAB PO SCH ×2 (08:40→20:52)
[2020-11-15] MEDS: CLONIDINE HCL 0.2 MG TAB PO SCH ×2 (08:40→20:53)
[2020-11-15] MEDS: GABAPENTIN 100 MG CAP PO SCH ×3 (08:41→20:50)
[2020-11-15] MEDS: CALCIUM PO SCH (08:41)
[2020-11-15] MEDS: PYRIDOXINE PO SCH (08:41)
[2020-11-15] MEDS: VIT B12 PO SCH (08:41)
[2020-11-15] MEDS: NIFEDIPINE CR 30 MG TAB PO SCH (08:41)
[2020-11-15] MEDS: [UNRECOGNIZED DRUG - OTHER] PO SCH (08:41)
[2020-11-15] MEDS: HYDROXYCHLOROQUINE SULFATE 200 MG TAB PO SCH ×2 (08:41→16:54)
[2020-11-15] MEDS: LOSARTAN POTASSIUM 100 MG TAB PO SCH (08:41)
[2020-11-15] MEDS: THIAMINE HCL 100 MG TAB PO SCH (08:42)
[2020-11-15] MEDS ORDERED: PRAVASTATIN 20 MG TAB PO SCH (09:00)
[2020-11-15] MEDS ORDERED: HYDROXYCHLOROQUINE SULFATE 200 MG TAB PO SCH (09:00)
[2020-11-15] MEDS ORDERED: AMLODIPINE BESYLATE 10 MG TAB PO SCH (09:00)
[2020-11-15] MEDS ORDERED: B1 PO SCH (09:00)
[2020-11-15] MEDS ORDERED: ONDANSETRON HCL 4 MG ORAL DISINTEGRATING TAB PO PRN (13:00)
[2020-11-15] MEDS: SODIUM CHLORIDE 0.9% IRRIG 1,000 ML BTL IR SCH ×3 (16:54→22:00)
[2020-11-15] MEDS: LORATADINE 10 MG TAB PO SCH (20:50)
[2020-11-15] MEDS: ATORVASTATIN 40 MG TAB PO SCH (20:50)
[2020-11-16] VITALS (8 sets, daily range): BP systolic 111–160; BP diastolic 43–54
[2020-11-16] MEDS: SODIUM CHLORIDE 0.9% IRRIG 1,000 ML BTL IR SCH ×6 (02:00→23:36)
[2020-11-16 05:07] LABS: BASOPHILS % 0.6 % (0.0-1.0); EOSINOPHILS # (AUTO) 0.1 (0.0-0.4); EOSINOPHILS % 2.5 % (0.0-6.0); HEMATOCRIT 28.8 % (38.2-49.6); LYMPHOCYTES # (AUTO) 1.4 (1.0-3.2); LYMPHOCYTES % 26.4 % (18.0-39.1); MEAN CORPUSCULAR HEMOGLOBIN 27.4 pg (28-32); MEAN CORPUSCULAR HGB CONC 31.3 g/dL (31-35); MEAN CORPUSCULAR VOLUME 87.5 fL (81-99); MONOCYTES # (AUTO) 0.6 (0.2-0.8); MONOCYTES % 12.2 % (4.4-11.3); NEUTROPHILS # (AUTO) 3.1 (2.1-6.9); NEUTROPHILS % 57.9 % (38.7-80.0); PLATELET COUNT 215 x10e3/uL (140-360); RED BLOOD COUNT 3.29 x10e6/uL (4.3-5.7); RED CELL DISTRIBUTION WIDTH 14.5 % (11.7-14.4)
[2020-11-16 05:33] LABS: ANION GAP 18.5 mmol/L (8-16); CALCIUM 7.4 mg/dL (8.4-10.2); CREATININE, SERUM 8.27 mg/dL (0.72-1.25); POTASSIUM 4.5 mmol/L (3.5-5.1)
[2020-11-16] MEDS: CARVEDILOL 3.125 MG TAB PO SCH ×2 (05:56→17:34)
[2020-11-16] MEDS: PANTOPRAZOLE SOD 40 MG TABEC PO SCH (06:06)
[2020-11-16] MEDS: INSULIN LISPRO 100 UNIT/1 ML 3ML VIAL SQ SCH ×4 (07:30→20:07)
[2020-11-16] MEDS ORDERED: SODIUM CHLORIDE 0.9% 1000ML 2,000 ML ONE (08:39)
[2020-11-16] MEDS: VIT B12 PO SCH (09:00)
[2020-11-16] MEDS: THIAMINE HCL 100 MG TAB PO SCH (09:00)
[2020-11-16] MEDS: LOSARTAN POTASSIUM 100 MG TAB PO SCH (09:00)
[2020-11-16] MEDS: NIFEDIPINE CR 30 MG TAB PO SCH (09:00)
[2020-11-16] MEDS: CALCIUM PO SCH (09:00)
[2020-11-16] MEDS: HYDRALAZINE HCL 25 MG TAB PO SCH ×2 (09:00→20:50)
[2020-11-16] MEDS: PYRIDOXINE PO SCH (09:00)
[2020-11-16] MEDS: HYDROXYCHLOROQUINE SULFATE 200 MG TAB PO SCH ×2 (09:00→17:31)
[2020-11-16] MEDS: CLONIDINE HCL 0.2 MG TAB PO SCH ×2 (09:00→20:50)
[2020-11-16] MEDS: GABAPENTIN 100 MG CAP PO SCH ×3 (09:00→20:49)
[2020-11-16] MEDS: [UNRECOGNIZED DRUG - OTHER] PO SCH (09:00)
[2020-11-16] MEDS: EPOETIN ALFA-EPBX 10,000 UNIT/ML VIAL SC SCH (09:00)
[2020-11-16] MEDS ORDERED: SODIUM CHLORIDE 0.9% 250ML 500 ML IV PRN (09:30)
[2020-11-16] MEDS ORDERED: ALBUMIN 25% 12.5GM 0.25 GM/ML BTL IV PRN (09:30)
[2020-11-16] MEDS ORDERED: SODIUM CHLORIDE 0.9% 1000ML 2,000 ML IV PRN (09:30)
[2020-11-16] MEDS: PIPERACILLIN/TAZOBACTAM 2.25 GM in SODIUM CHLORIDE 0.9% 50ML 50 ML IV SCH ×2 (13:43→20:50)
[2020-11-16] MEDS: ATORVASTATIN 40 MG TAB PO SCH (20:49)
[2020-11-16] MEDS: LORATADINE 10 MG TAB PO SCH (20:49)
[2020-11-17] VITALS (7 sets, daily range): BP systolic 95–141; BP diastolic 36–54
[2020-11-17] MEDS: SODIUM CHLORIDE 0.9% IRRIG 1,000 ML BTL IR SCH ×6 (03:24→20:55)
[2020-11-17] MEDS: CARVEDILOL 3.125 MG TAB PO SCH ×2 (06:08→18:00)
[2020-11-17] MEDS: INSULIN LISPRO 100 UNIT/1 ML 3ML VIAL SQ SCH ×4 (07:30→20:21)
[2020-11-17] MEDS: PIPERACILLIN/TAZOBACTAM 2.25 GM in SODIUM CHLORIDE 0.9% 50ML 50 ML IV SCH ×2 (08:29→20:51)
[2020-11-17] MEDS: PANTOPRAZOLE SOD 40 MG TABEC PO SCH (08:29)
[2020-11-17] MEDS: LOSARTAN POTASSIUM 100 MG TAB PO SCH (08:30)
[2020-11-17] MEDS: PYRIDOXINE PO SCH (08:30)
[2020-11-17] MEDS: [UNRECOGNIZED DRUG - OTHER] PO SCH (08:30)
[2020-11-17] MEDS: VIT B12 PO SCH (08:30)
[2020-11-17] MEDS: CLONIDINE HCL 0.2 MG TAB PO SCH ×2 (08:30→20:55)
[2020-11-17] MEDS: CALCIUM PO SCH (08:30)
[2020-11-17] MEDS: HYDRALAZINE HCL 25 MG TAB PO SCH ×2 (08:30→20:54)
[2020-11-17] MEDS: GABAPENTIN 100 MG CAP PO SCH ×3 (08:31→20:55)
[2020-11-17] MEDS: THIAMINE HCL 100 MG TAB PO SCH (08:31)
[2020-11-17] MEDS: HYDROXYCHLOROQUINE SULFATE 200 MG TAB PO SCH ×2 (08:31→16:42)
[2020-11-17] MEDS: NIFEDIPINE CR 30 MG TAB PO SCH (09:00)
[2020-11-17 14:14] LABS: BASOPHILS % 0.6 % (0.0-1.0); EOSINOPHILS # (AUTO) 0.1 (0.0-0.4); EOSINOPHILS % 2.3 % (0.0-6.0); HEMATOCRIT 29.7 % (38.2-49.6); HEMOGLOBIN 9.3 g/dL (14.0-18.0); LYMPHOCYTES # (AUTO) 1.5 (1.0-3.2); LYMPHOCYTES % 28.1 % (18.0-39.1); MEAN CORPUSCULAR HEMOGLOBIN 27.7 pg (28-32); MEAN CORPUSCULAR HGB CONC 31.3 g/dL (31-35); MEAN CORPUSCULAR VOLUME 88.4 fL (81-99); MONOCYTES # (AUTO) 0.6 (0.2-0.8); MONOCYTES % 11.1 % (4.4-11.3); NEUTROPHILS # (AUTO) 3.1 (2.1-6.9); NEUTROPHILS % 57.5 % (38.7-80.0); PLATELET COUNT 193 x10e3/uL (140-360); RED BLOOD COUNT 3.36 x10e6/uL (4.3-5.7); RED CELL DISTRIBUTION WIDTH 14.7 % (11.7-14.4)
[2020-11-17] MEDS: ACETAMINOPHEN 325 MG TAB PO PRN (18:42)
[2020-11-17] MEDS: LORATADINE 10 MG TAB PO SCH (20:55)
[2020-11-17] MEDS: ATORVASTATIN 40 MG TAB PO SCH (20:55)
[2020-11-18] VITALS (7 sets, daily range): BP systolic 109–144; BP diastolic 42–61
[2020-11-18] MEDS: SODIUM CHLORIDE 0.9% IRRIG 1,000 ML BTL IR SCH ×6 (02:00→22:03)
[2020-11-18] MEDS: CARVEDILOL 3.125 MG TAB PO SCH ×2 (04:58→17:51)
[2020-11-18 06:44] LABS: BASOPHILS % 0.6 % (0.0-1.0); EOSINOPHILS # (AUTO) 0.2 (0.0-0.4); EOSINOPHILS % 3.1 % (0.0-6.0); HEMATOCRIT 29.3 % (38.2-49.6); HEMOGLOBIN 9.1 g/dL (14.0-18.0); LYMPHOCYTES # (AUTO) 1.3 (1.0-3.2); LYMPHOCYTES % 24.4 % (18.0-39.1); MEAN CORPUSCULAR HEMOGLOBIN 27.7 pg (28-32); MEAN CORPUSCULAR HGB CONC 31.1 g/dL (31-35); MEAN CORPUSCULAR VOLUME 89.3 fL (81-99); MONOCYTES # (AUTO) 0.6 (0.2-0.8); MONOCYTES % 10.1 % (4.4-11.3); NEUTROPHILS # (AUTO) 3.3 (2.1-6.9); NEUTROPHILS % 61.1 % (38.7-80.0); PLATELET COUNT 201 x10e3/uL (140-360); RED BLOOD COUNT 3.28 x10e6/uL (4.3-5.7); RED CELL DISTRIBUTION WIDTH 14.7 % (11.7-14.4)
[2020-11-18 07:07] LABS: ANION GAP 18.9 mmol/L (8-16); CALCIUM 7.5 mg/dL (8.4-10.2); CREATININE, SERUM 7.58 mg/dL (0.72-1.25); POTASSIUM 4.9 mmol/L (3.5-5.1)
[2020-11-18] MEDS: INSULIN LISPRO 100 UNIT/1 ML 3ML VIAL SQ SCH ×4 (07:30→21:22)
[2020-11-18] MEDS: HYDRALAZINE HCL 25 MG TAB PO SCH ×2 (08:09→21:00)
[2020-11-18] MEDS: PIPERACILLIN/TAZOBACTAM 2.25 GM in SODIUM CHLORIDE 0.9% 50ML 50 ML IV SCH ×2 (08:09→20:22)
[2020-11-18] MEDS: PANTOPRAZOLE SOD 40 MG TABEC PO SCH (08:09)
[2020-11-18] MEDS: CALCIUM PO SCH (08:10)
[2020-11-18] MEDS: CLONIDINE HCL 0.2 MG TAB PO SCH (08:10)
[2020-11-18] MEDS: VIT B12 PO SCH (08:10)
[2020-11-18] MEDS: HYDROXYCHLOROQUINE SULFATE 200 MG TAB PO SCH ×2 (08:10→15:54)
[2020-11-18] MEDS: [UNRECOGNIZED DRUG - OTHER] PO SCH (08:10)
[2020-11-18] MEDS: PYRIDOXINE PO SCH (08:10)
[2020-11-18] MEDS: NIFEDIPINE CR 30 MG TAB PO SCH (08:10)
[2020-11-18] MEDS: LOSARTAN POTASSIUM 100 MG TAB PO SCH (08:10)
[2020-11-18] MEDS: GABAPENTIN 100 MG CAP PO SCH ×3 (08:10→20:21)
[2020-11-18] MEDS: THIAMINE HCL 100 MG TAB PO SCH (08:10)
[2020-11-18] MEDS: ACETAMINOPHEN 325 MG TAB PO PRN (10:56)
[2020-11-18] MEDS: ATORVASTATIN 40 MG TAB PO SCH (20:21)
[2020-11-18] MEDS: LORATADINE 10 MG TAB PO SCH (20:21)
[2020-11-19] VITALS: BP 94/36
[2020-11-19 04:00] VITALS: BP 114/43
[2020-11-19 04:41] VITALS: BP 94/36
[2020-11-19 05:43] LABS: HEMATOCRIT 28.8 % (38.2-49.6)
[2020-11-19] MEDS: SODIUM CHLORIDE 0.9% IRRIG 1,000 ML BTL IR SCH ×4 (06:00→14:00)
[2020-11-19 06:20] LABS: ANION GAP 19.6 mmol/L (8-16); CALCIUM 7.6 mg/dL (8.4-10.2); CREATININE, SERUM 9.29 mg/dL (0.72-1.25); POTASSIUM 5.6 mmol/L (3.5-5.1)
[2020-11-19] MEDS: INSULIN LISPRO 100 UNIT/1 ML 3ML VIAL SQ SCH ×2 (07:30→11:30)
[2020-11-19 07:33] VITALS: BP 132/48
[2020-11-19 08:46] VITALS: BP 132/48
[2020-11-19] MEDS: GABAPENTIN 100 MG CAP PO SCH (09:00)
[2020-11-19] MEDS: PYRIDOXINE PO SCH (09:00)
[2020-11-19] MEDS: CALCIUM PO SCH (09:00)
[2020-11-19] MEDS: VIT B12 PO SCH (09:00)
[2020-11-19] MEDS: [UNRECOGNIZED DRUG - OTHER] PO SCH (09:00)
[2020-11-19] MEDS: THIAMINE HCL 100 MG TAB PO SCH (09:00)
[2020-11-19] MEDS: PIPERACILLIN/TAZOBACTAM 2.25 GM in SODIUM CHLORIDE 0.9% 50ML 50 ML IV SCH (09:00)
[2020-11-19 11:30] VITALS: BP 151/59
[2020-11-19] MEDS: LOSARTAN POTASSIUM 100 MG TAB PO SCH (12:00)
[2020-11-19] MEDS: PANTOPRAZOLE SOD 40 MG TABEC PO SCH (14:27)
[2020-11-19] MEDS: HYDRALAZINE HCL 25 MG TAB PO SCH (14:29)
[2020-11-19] MEDS: HYDROXYCHLOROQUINE SULFATE 200 MG TAB PO SCH (14:30)
[2020-11-19] MEDS: EPOETIN ALFA-EPBX 10,000 UNIT/ML VIAL SC SCH (14:34)
== END 2020-11-19 16:15 | disposition home or self-care (01) | DRG 725 ==
LOC: ER 07:24 → ERHOLD 10:28 → MED/SURG3 11:14
PROVIDERS: ADMIT Internal Medicine; ATTEND Internal Medicine
PROC: 5A1D70Z Performance of Urinary Filtration, Intermittent, Less than 6 Hours Per Day (ICD-10-PCS; principal; 2020-11-14)
DX: N40.1 Benign prostatic hyperplasia with lower urinary tract symptoms (principal); N18.6 End stage renal disease; N39.0 Urinary tract infection, site not specified; I12.0 Hypertensive chronic kidney disease with stage 5 chronic kidney disease or end stage renal disease; E83.51 Hypocalcemia; E11.22 Type 2 diabetes mellitus with diabetic chronic kidney disease; Z99.2 Dependence on renal dialysis; K20.90 Esophagitis, unspecified without bleeding; R31.0 Gross hematuria; N28.1 Cyst of kidney, acquired; Z91.19 Patient's noncompliance with other medical treatment and regimen; E78.5 Hyperlipidemia, unspecified; I49.8 Other specified cardiac arrhythmias; Z20.822 Contact with and (suspected) exposure to COVID-19; T46.1X5A Adverse effect of calcium-channel blockers, initial encounter
CPT/HCPCS: 36415; 51700; 74178; 80048; 80053; 80061; 81001; 82948; 83036; 83735; 84100; 84443; 85014; 85018; 85025; 85610; 85730; 86704; 86706; 87086; 87340; 93005; 93306; 97139; 99251; 99284; J0360; J2543; J3411; J7030; J7050; Q9967; U0002

== ENCOUNTER 2021-01-11 19:29 | Emergency (ER) | payer MEDICARE, OTHER ==
[~2021-01-11] VITALS: Ht 170.2 cm; Wt 67.1 kg
[~2021-01-11 19:29] MED LIST changes: +CLONIDINE HCL0.2 MG PO; +COREG6.25 MG PO; +FOLIC ACID-VIT1 EACH PO; +JANUVIA25 MG PO; +LIPITOR20 MG PO; +ONDANSETRON ODT4 MG PO; +XYZAL5 MG PO
[2021-01-11] MEDS ORDERED: ONDANSETRON HCL INJ 2MG/ML 2ML 2 MG/ML VIAL IV STA (19:42)
[2021-01-11] MEDS ORDERED: SODIUM CHLORIDE 0.9% 1000ML 1,000 ML IV STA (19:42)
[2021-01-11] MEDS ORDERED: ONDANSETRON HCL INJ 2MG/ML 2ML 2 MG/ML VIAL ONE (20:04)
[2021-01-11] MEDS ORDERED: SODIUM CHLORIDE 0.9% 1000ML 1,000 ML ONE (20:04)
[2021-01-11] MEDS ORDERED: ONDANSETRON ODT4 MG PO (20:28)
[2021-01-11 21:10] VITALS: BP 136/71
== END 2021-01-11 20:43 | disposition home or self-care (01) ==
LOC: FSED 19:45
DX: R11.2 Nausea with vomiting, unspecified (principal); I12.0 Hypertensive chronic kidney disease with stage 5 chronic kidney disease or end stage renal disease; E11.22 Type 2 diabetes mellitus with diabetic chronic kidney disease; N18.6 End stage renal disease; Z99.2 Dependence on renal dialysis; E11.40 Type 2 diabetes mellitus with diabetic neuropathy, unspecified; E78.5 Hyperlipidemia, unspecified; K21.9 Gastro-esophageal reflux disease without esophagitis
CPT/HCPCS: 80048; 81003; 85025; 93005; 99283; J2405; J7030

== ENCOUNTER 2022-06-09 11:46 | Emergency (ER) | payer MEDICARE, OTHER ==
[~2022-06-09] VITALS: Ht 170.2 cm; Wt 70.3 kg
[~2022-06-09 11:46] MED LIST changes: +MYLANTA MAXIMUM10 ML PO
[2022-06-09] MEDS ORDERED: ONDANSETRON HCL INJ 2MG/ML 2ML 2 MG/ML VIAL IV ONE (12:25)
[2022-06-09] MEDS ORDERED: ASPIRIN 81 MG CHEW TAB PO ONE (12:30)
[2022-06-09] MEDS ORDERED: Morphine 4mg INJECTION 4 MG/ML INJ IV ONE (12:30)
[2022-06-09 13:21] LABS: BASOPHILS % 1.1 % (0.0-1.0); HEMOGLOBIN 12.9 g/dL (14.0-18.0); LYMPHOCYTES # (AUTO) 0.6 (1.0-3.2); LYMPHOCYTES % 17.5 % (18.0-39.1); MEAN CORPUSCULAR HGB CONC 28.7 g/dL (31-35); MEAN CORPUSCULAR VOLUME 87.2 fL (81-99); MONOCYTES # (AUTO) 0.6 (0.2-0.8); MONOCYTES % 15.6 % (4.4-11.3); NEUTROPHILS # (AUTO) 2.3 (2.1-6.9); PLATELET COUNT 171 x10e3/uL (140-360); RED BLOOD COUNT 5.16 x10e6/uL (4.3-5.7); RED CELL DISTRIBUTION WIDTH 21.9 % (11.7-14.4)
[2022-06-09 13:43] LABS: ALBUMIN 2.7 g/dL (3.5-5.0); ALBUMIN/GLOBULIN RATIO 0.5 (0.8-2.0); ANION GAP 14.6 mmol/L (8-16); CALCIUM 9.7 mg/dL (8.4-10.2); CREATININE, SERUM 3.26 mg/dL (0.72-1.25); POTASSIUM 3.6 mmol/L (3.5-5.1)
[2022-06-09 13:49] LABS: CREATINE KINASE MB 3.3 ng/mL (0-5.0)
[2022-06-09] MEDS ORDERED: IOPAMIDOL 370 MG/ML 100 ML INFUS..BTL INJ ONE (14:24)
[2022-06-09 16:18] LABS: CLARITY,URINE CLOUDY (CLEAR); COLOR,URINE RED (YELLOW); LEUKOCYTE ESTERASE ,URINE NEGATIVE (NEGATIVE); NITRITE,URINE NEGATIVE (NEGATIVE); PROTEIN,URINE DIPSTICK >=300 (NEGATIVE)
[2022-06-09 16:19] LABS: KETONES,URINE NEGATIVE (NEGATIVE); URINE UROBILINOGEN 0.2 mg/dL (0.2 - 1)
[2022-06-09 16:26] LABS: BACTERIA,URINE FEW /HPF; RBC,URINE >50 /HPF (0-5); WBC,URINE (MAN) 0-5 /HPF (0-5)
[2022-06-09] MEDS ORDERED: ONDANSETRON ODT4 MG PO (17:44)
[2022-06-09] MEDS ORDERED: CIPRO500 MG PO (17:45)
[2022-06-09 18:09] VITALS: BP 163/44
== END 2022-06-09 18:00 | disposition home or self-care (01) ==
LOC: ER 12:21
DX: R11.10 Vomiting, unspecified (principal); N40.0 Benign prostatic hyperplasia without lower urinary tract symptoms; K59.00 Constipation, unspecified; E11.22 Type 2 diabetes mellitus with diabetic chronic kidney disease; I12.0 Hypertensive chronic kidney disease with stage 5 chronic kidney disease or end stage renal disease; N18.6 End stage renal disease; E78.5 Hyperlipidemia, unspecified; K21.9 Gastro-esophageal reflux disease without esophagitis; Z99.2 Dependence on renal dialysis; Z99.81 Dependence on supplemental oxygen; Z79.84 Long term (current) use of oral hypoglycemic drugs; Z79.899 Other long term (current) drug therapy
CPT/HCPCS: 36415; 71045; 74177; 80053; 81001; 82550; 82553; 83690; 84484; 85025; 99284; J2270; J2405; Q9967

== ENCOUNTER 2022-06-24 05:30 | Inpatient (IN) | payer MEDICARE, OTHER ==
[~2022-06-24] VITALS: Ht 170.2 cm; Wt 51.7 kg
[2022-06-24] VITALS (15 sets, daily range): BP systolic 126–189; BP diastolic 50–161
[~2022-06-24 05:30] MED LIST changes: +CIPRO500 MG PO
[2022-06-24 05:54] LABS: BASOPHILS % 0.8 % (0.0-1.0); HEMATOCRIT 53.6 % (38.2-49.6); HEMOGLOBIN 15.2 g/dL (14.0-18.0); LYMPHOCYTES # (AUTO) 0.3 (1.0-3.2); LYMPHOCYTES % 8.1 % (18.0-39.1); MEAN CORPUSCULAR HEMOGLOBIN 25.5 pg (28-32); MEAN CORPUSCULAR HGB CONC 28.4 g/dL (31-35); MEAN CORPUSCULAR VOLUME 89.8 fL (81-99); MONOCYTES # (AUTO) 0.6 (0.2-0.8); MONOCYTES % 14.4 % (4.4-11.3); NEUTROPHILS % 75.9 % (38.7-80.0); PLATELET COUNT 160 x10e3/uL (140-360); RED BLOOD COUNT 5.97 x10e6/uL (4.3-5.7); RED CELL DISTRIBUTION WIDTH 22.6 % (11.7-14.4)
[2022-06-24 06:07] LABS: ALBUMIN 2.8 g/dL (3.5-5.0); ALBUMIN/GLOBULIN RATIO 0.5 (0.8-2.0); ANION GAP 14.1 mmol/L (8-16); CALCIUM 9.7 mg/dL (8.4-10.2); CREATININE, SERUM 5.05 mg/dL (0.72-1.25); POTASSIUM 4.1 mmol/L (3.5-5.1)
[2022-06-24] MEDS ORDERED: DEXTROSE 10% 1,000 ML IV ONE (09:15)
[2022-06-24 09:26] LABS: PLATELET ESTIMATE ADEQUATE; PLATELET MORPHOLOGY COMMENT NORMAL; RBC MORPHOLOGY COMMENT NORMAL
[2022-06-24] MEDS ORDERED: DEXTROSE 50% SYRINGE 50 ML IV ONE (11:00)
[2022-06-24] MEDS ORDERED: NIFEDIPINE CR 30 MG TAB PO SCH (11:00)
[2022-06-24] MEDS ORDERED: LIDOCAINE 4% PATCH TP PRN (14:45)
[2022-06-24] MEDS ORDERED: ALBUTEROL/IPRATROPIUM 3 ML NEB NEB PRN (14:45)
[2022-06-24] MEDS ORDERED: ACETAMINOPHEN 325 MG TAB PO PRN (14:45)
[2022-06-24] MEDS ORDERED: DOCUSATE SODIUM 100 MG CAP PO PRN (14:45)
[2022-06-24] MEDS ORDERED: MELATONIN 5 MG TABLET PO PRN (14:45)
[2022-06-24] MEDS ORDERED: SIMETHICONE 80 MG CHEW PO PRN (14:45)
[2022-06-24] MEDS ORDERED: DIPHENHYDRAMINE HCL 25 MG CAP PO PRN (14:45)
[2022-06-24] MEDS: DEXTROSE 50% SYRINGE 50 ML IV PRN ×2 (15:05→21:34)
[2022-06-24] MEDS: ONDANSETRON HCL INJ 2MG/ML 2ML 2 MG/ML VIAL IV PRN ×2 (17:56→23:01)
[2022-06-24 18:06] LABS: AMYLASE 103 U/L (25-125); LIPASE 18 U/L (8-78)
[2022-06-24] MEDS ORDERED: GLUCAGON FOR INJ 1 MG VIAL IM ONE (18:10)
[2022-06-24] MEDS ORDERED: LEVOCETIRIZINE D5 MG PO (18:27)
[2022-06-24] MEDS ORDERED: CLONIDINE HCL0.1 MG PO (18:27)
[2022-06-24] MEDS ORDERED: PANTOPRAZOLE SO40 MG PO (18:27)
[2022-06-24] MEDS ORDERED: BIOTIN PLUS 5,1 EACH PO (18:27)
[2022-06-24] MEDS ORDERED: PLAVIX75 MG PO (18:27)
[2022-06-24] MEDS ORDERED: SERTRALINE HCL50 MG PO (18:27)
[2022-06-24] MEDS ORDERED: CLOBETASOL1 EA/15 GM PO (18:27)
[2022-06-24] MEDS ORDERED: FLONASE ALLERG9.9 ML INH (18:27)
[2022-06-24] MEDS ORDERED: SENOKOT-S TABL1 EACH PO (18:27)
[2022-06-24] MEDS ORDERED: DIATRIZOATE MEGL/DIATRIZOA SOD 30 ML BTL PO ONE (18:43)
[2022-06-24 19:53] LABS: AMYLASE 69 U/L (25-125); LIPASE 19 U/L (8-78)
[2022-06-24] MEDS ORDERED: METOCLOPRAMIDE HCL 10 MG/2ML VIAL IV ONE (23:45)
[2022-06-25] VITALS (25 sets, daily range): BP systolic 118–181; BP diastolic 43–122
[2022-06-25] MEDS: DEXTROSE 10% 1,000 ML IV SCH ×2 (00:31→16:32)
[2022-06-25] MEDS: METOCLOPRAMIDE HCL 10 MG/2ML VIAL IV SCH ×3 (06:08→17:10)
[2022-06-25 06:59] LABS: BASOPHILS % 0.6 % (0.0-1.0); HEMATOCRIT 49.5 % (38.2-49.6); HEMOGLOBIN 14.7 g/dL (14.0-18.0); LYMPHOCYTES # (AUTO) 0.5 (1.0-3.2); LYMPHOCYTES % 9.7 % (18.0-39.1); MEAN CORPUSCULAR HEMOGLOBIN 25.6 pg (28-32); MEAN CORPUSCULAR HGB CONC 29.7 g/dL (31-35); MEAN CORPUSCULAR VOLUME 86.2 fL (81-99); MONOCYTES # (AUTO) 0.7 (0.2-0.8); MONOCYTES % 13.4 % (4.4-11.3); NEUTROPHILS # (AUTO) 4.1 (2.1-6.9); NEUTROPHILS % 75.7 % (38.7-80.0); PLATELET COUNT 148 x10e3/uL (140-360); RED BLOOD COUNT 5.74 x10e6/uL (4.3-5.7)
[2022-06-25 07:18] LABS: ALBUMIN 2.4 g/dL (3.5-5.0); ALBUMIN/GLOBULIN RATIO 0.5 (0.8-2.0); ANION GAP 13.3 mmol/L (8-16); CALCIUM 9.5 mg/dL (8.4-10.2); CREATININE, SERUM 6.03 mg/dL (0.72-1.25); POTASSIUM 4.3 mmol/L (3.5-5.1)
[2022-06-25] MEDS ORDERED: PANTOPRAZOLE SOD 40 MG TABEC PO SCH (07:30)
[2022-06-25 07:33] LABS: MAGNESIUM 2.2 MG/DL (1.3-2.1); PHOSPHORUS 3.7 MG/DL (2.3-4.7)
[2022-06-25] MEDS: ONDANSETRON HCL INJ 2MG/ML 2ML 2 MG/ML VIAL IV PRN (08:48)
[2022-06-25] MEDS ORDERED: SODIUM CHLORIDE 0.9% 1000ML 2,000 ML ONE (12:30)
[2022-06-25] MEDS: KETOROLAC TROMETHAMINE 30 MG/ML VIAL IV ONE (16:31)
[2022-06-26] VITALS (26 sets, daily range): BP systolic 146–208; BP diastolic 33–87
[2022-06-26] MEDS: METOCLOPRAMIDE HCL 10 MG/2ML VIAL IV SCH ×5 (00:42→23:20)
[2022-06-26] MEDS: KETOROLAC TROMETHAMINE 30 MG/ML VIAL IV ONE (00:43)
[2022-06-26] MEDS: HYDRALAZINE HCL 20 MG/ML VIAL IV PRN ×3 (02:14→22:11)
[2022-06-26 06:10] LABS: BASOPHILS % 0.6 % (0.0-1.0); HEMOGLOBIN 13.6 g/dL (14.0-18.0); LYMPHOCYTES # (AUTO) 0.4 (1.0-3.2); LYMPHOCYTES % 12.6 % (18.0-39.1); MEAN CORPUSCULAR HEMOGLOBIN 28.1 pg (28-32); MEAN CORPUSCULAR HGB CONC 31.6 g/dL (31-35); MEAN CORPUSCULAR VOLUME 88.8 fL (81-99); MONOCYTES # (AUTO) 0.6 (0.2-0.8); MONOCYTES % 18.4 % (4.4-11.3); NEUTROPHILS # (AUTO) 2.4 (2.1-6.9); NEUTROPHILS % 67.5 % (38.7-80.0); PLATELET COUNT 107 x10e3/uL (140-360); RED BLOOD COUNT 4.84 x10e6/uL (4.3-5.7); RED CELL DISTRIBUTION WIDTH 23.8 % (11.7-14.4)
[2022-06-26 06:32] LABS: ANION GAP 12.2 mmol/L (8-16); CALCIUM 8.5 mg/dL (8.4-10.2); CHOL/HDL RATIO 2.2 (3.9-4.7); CREATININE, SERUM 3.89 mg/dL (0.72-1.25); MAGNESIUM 1.7 MG/DL (1.3-2.1); PHOSPHORUS 2.9 MG/DL (2.3-4.7); POTASSIUM 4.2 mmol/L (3.5-5.1)
[2022-06-26] MEDS: ONDANSETRON HCL INJ 2MG/ML 2ML 2 MG/ML VIAL IV PRN ×2 (07:15→17:46)
[2022-06-26 07:21] LABS: THYROID STIMULATING HORMONE 1.159 uIU/mL (0.350-4.940)
[2022-06-26] MEDS: SERTRALINE HCL 50 MG TAB PO SCH (09:39)
[2022-06-26] MEDS: HYDROXYCHLOROQUINE SULFATE 200 MG TAB PO SCH ×2 (09:39→20:29)
[2022-06-26] MEDS: CLOPIDOGREL BISULFATE 75 MG TAB PO SCH (09:40)
[2022-06-26] MEDS: DEXTROSE 10% 1,000 ML IV SCH (16:26)
[2022-06-26] MEDS ORDERED: HYDROMORPHONE 1MG/1ML INJ IV ONE (17:30)
[2022-06-26] MEDS: ENOXAPARIN 30 MG/0.3 ML SYR SC SCH (17:46)
[2022-06-26] MEDS: ATORVASTATIN 20 MG TAB PO SCH (20:29)
[2022-06-26] MEDS ORDERED: ATORVASTATIN 40 MG TAB PO SCH (21:00)
[2022-06-26] MEDS: HYDROCODONE/APAP 5MG-325MG TAB PO PRN (23:20)
[2022-06-27] VITALS (27 sets, daily range): BP systolic 133–191; BP diastolic 35–150
[2022-06-27] MEDS: DEXTROSE 10% 1,000 ML IV SCH ×2 (01:56→23:16)
[2022-06-27 05:16] LABS: ALBUMIN 2.7 g/dL (3.5-5.0); ALBUMIN/GLOBULIN RATIO 0.6 (0.8-2.0); ANION GAP 15.6 mmol/L (8-16); CALCIUM 9.7 mg/dL (8.4-10.2); CREATININE, SERUM 5.68 mg/dL (0.72-1.25); POTASSIUM 4.6 mmol/L (3.5-5.1)
[2022-06-27] MEDS: METOCLOPRAMIDE HCL 10 MG/2ML VIAL IV SCH ×4 (05:45→23:18)
[2022-06-27] MEDS: HYDRALAZINE HCL 20 MG/ML VIAL IV PRN ×2 (07:50→17:57)
[2022-06-27] MEDS ORDERED: SODIUM CHLORIDE 0.9% 1000ML 2,000 ML ONE (07:55)
[2022-06-27] MEDS ORDERED: SODIUM CHLORIDE 0.9% 1000ML 2,000 ML IV PRN (08:15)
[2022-06-27] MEDS: HYDROXYCHLOROQUINE SULFATE 200 MG TAB PO SCH ×2 (08:29→21:18)
[2022-06-27] MEDS: CLOPIDOGREL BISULFATE 75 MG TAB PO SCH (08:29)
[2022-06-27] MEDS: SERTRALINE HCL 50 MG TAB PO SCH (08:29)
[2022-06-27] MEDS: ONDANSETRON HCL INJ 2MG/ML 2ML 2 MG/ML VIAL IV PRN ×2 (08:57→14:44)
[2022-06-27] MEDS: HYDROCODONE/APAP 5MG-325MG TAB PO PRN ×2 (11:40→21:19)
[2022-06-27] MEDS ORDERED: PROPOFOL IV EMULSION 10 MG/ML 20 ML VIAL ONE ×2 (12:23→15:36)
[2022-06-27 14:26] LABS: ANION GAP 14.3 mmol/L (8-16); CALCIUM 9.3 mg/dL (8.4-10.2); CREATININE, SERUM 2.66 mg/dL (0.72-1.25); POTASSIUM 4.3 mmol/L (3.5-5.1)
[2022-06-27] MEDS: SUCRALFATE 1 GM/10 ML SUSP PO SCH ×2 (16:47→21:18)
[2022-06-27] MEDS: ENOXAPARIN 30 MG/0.3 ML SYR SC SCH (16:47)
[2022-06-27] MEDS: ATORVASTATIN 20 MG TAB PO SCH (21:19)
[2022-06-28] VITALS (33 sets, daily range): BP systolic 111–183; BP diastolic 34–78
[2022-06-28] MEDS: METOCLOPRAMIDE HCL 10 MG/2ML VIAL IV SCH ×3 (05:45→16:44)
[2022-06-28] MEDS: HYDRALAZINE HCL 20 MG/ML VIAL IV PRN (05:48)
[2022-06-28] MEDS: ONDANSETRON HCL INJ 2MG/ML 2ML 2 MG/ML VIAL IV PRN (07:28)
[2022-06-28] MEDS: HYDROXYCHLOROQUINE SULFATE 200 MG TAB PO SCH ×2 (08:28→20:08)
[2022-06-28] MEDS: SUCRALFATE 1 GM/10 ML SUSP PO SCH ×4 (08:29→20:08)
[2022-06-28] MEDS: MEGACE 400MG/ 10ML CUP PO SCH (08:29)
[2022-06-28] MEDS: CLOPIDOGREL BISULFATE 75 MG TAB PO SCH (08:29)
[2022-06-28] MEDS: SERTRALINE HCL 50 MG TAB PO SCH (08:29)
[2022-06-28] MEDS ORDERED: CHLORPROMAZINE HCL 25 MG TAB PO PRN (15:00)
[2022-06-28] MEDS: ENOXAPARIN 30 MG/0.3 ML SYR SC SCH (16:44)
[2022-06-28] MEDS: ATORVASTATIN 20 MG TAB PO SCH (20:08)
[2022-06-29] VITALS (24 sets, daily range): BP systolic 106–149; BP diastolic 33–71
[2022-06-29] MEDS: METOCLOPRAMIDE HCL 10 MG/2ML VIAL IV SCH ×5 (00:15→23:11)
[2022-06-29] MEDS: DEXTROSE 10% 1,000 ML IV SCH (01:56)
[2022-06-29 06:47] LABS: BASOPHILS % 0.4 % (0.0-1.0); HEMATOCRIT 43.1 % (38.2-49.6); HEMOGLOBIN 13.7 g/dL (14.0-18.0); LYMPHOCYTES # (AUTO) 0.4 (1.0-3.2); LYMPHOCYTES % 3.7 % (18.0-39.1); MEAN CORPUSCULAR HEMOGLOBIN 28.8 pg (28-32); MEAN CORPUSCULAR HGB CONC 31.8 g/dL (31-35); MEAN CORPUSCULAR VOLUME 90.5 fL (81-99); MONOCYTES # (AUTO) 0.9 (0.2-0.8); MONOCYTES % 9.6 % (4.4-11.3); NEUTROPHILS # (AUTO) 8.3 (2.1-6.9); NEUTROPHILS % 85.6 % (38.7-80.0); PLATELET COUNT 99 x10e3/uL (140-360); RED BLOOD COUNT 4.76 x10e6/uL (4.3-5.7); RED CELL DISTRIBUTION WIDTH 23.2 % (11.7-14.4)
[2022-06-29 07:05] LABS: ANION GAP 13.3 mmol/L (8-16); CALCIUM 9.1 mg/dL (8.4-10.2); CREATININE, SERUM 5.6 mg/dL (0.72-1.25); POTASSIUM 4.3 mmol/L (3.5-5.1)
[2022-06-29] MEDS: SUCRALFATE 1 GM/10 ML SUSP PO SCH ×4 (07:17→20:17)
[2022-06-29] MEDS: CLOPIDOGREL BISULFATE 75 MG TAB PO SCH (08:08)
[2022-06-29] MEDS: HYDROXYCHLOROQUINE SULFATE 200 MG TAB PO SCH ×2 (08:08→20:16)
[2022-06-29] MEDS: SERTRALINE HCL 50 MG TAB PO SCH (08:08)
[2022-06-29] MEDS: MEGACE 400MG/ 10ML CUP PO SCH (08:09)
[2022-06-29] MEDS: ENOXAPARIN 30 MG/0.3 ML SYR SC SCH (17:13)
[2022-06-29] MEDS: ATORVASTATIN 20 MG TAB PO SCH (20:16)
[2022-06-29] MEDS: BENZONATATE 100 MG CAP PO PRN (20:16)
[2022-06-30] VITALS (10 sets, daily range): BP systolic 91–142; BP diastolic 29–55
[2022-06-30] MEDS: BENZONATATE 100 MG CAP PO PRN (03:01)
[2022-06-30] MEDS: METOCLOPRAMIDE HCL 10 MG/2ML VIAL IV SCH ×3 (05:45→17:38)
[2022-06-30] MEDS: SUCRALFATE 1 GM/10 ML SUSP PO SCH ×3 (08:39→16:30)
[2022-06-30 08:52] LABS: BASOPHILS % 0.2 % (0.0-1.0); HEMATOCRIT 49.4 % (38.2-49.6); HEMOGLOBIN 14.3 g/dL (14.0-18.0); LYMPHOCYTES # (AUTO) 0.2 (1.0-3.2); LYMPHOCYTES % 2.2 % (18.0-39.1); MEAN CORPUSCULAR HEMOGLOBIN 26.1 pg (28-32); MEAN CORPUSCULAR HGB CONC 28.9 g/dL (31-35); MEAN CORPUSCULAR VOLUME 90.3 fL (81-99); MONOCYTES # (AUTO) 0.9 (0.2-0.8); MONOCYTES % 9.6 % (4.4-11.3); NEUTROPHILS # (AUTO) 8.6 (2.1-6.9); NEUTROPHILS % 87.5 % (38.7-80.0); RED BLOOD COUNT 5.47 x10e6/uL (4.3-5.7); RED CELL DISTRIBUTION WIDTH 20.6 % (11.7-14.4)
[2022-06-30 09:00] LABS: PLATELET COUNT 81 x10e3/uL (140-360)
[2022-06-30] MEDS: SERTRALINE HCL 50 MG TAB PO SCH (09:00)
[2022-06-30] MEDS: MEGACE 400MG/ 10ML CUP PO SCH (09:00)
[2022-06-30] MEDS: HYDROXYCHLOROQUINE SULFATE 200 MG TAB PO SCH (09:00)
[2022-06-30] MEDS: CLOPIDOGREL BISULFATE 75 MG TAB PO SCH (09:00)
[2022-06-30 09:02] LABS: ANION GAP 15.6 mmol/L (8-16); CALCIUM 9.6 mg/dL (8.4-10.2); CREATININE, SERUM 6.8 mg/dL (0.72-1.25); POTASSIUM 4.6 mmol/L (3.5-5.1)
[2022-06-30] MEDS ORDERED: CHLORPROMAZINE HCL 25 MG TAB PO PRN (09:30)
[2022-06-30] MEDS ORDERED: FLUCONAZOLE 200 MG/100 ML 100 ML IV SCH (10:00)
[2022-06-30] MEDS: NYSTATIN SUSPENSION 5 ML UDC PO SCH ×2 (13:00→17:00)
[2022-06-30] MEDS ORDERED: FLUCONAZOLE 100 MG TAB PO ONE (17:00)
[2022-06-30] MEDS: ENOXAPARIN 30 MG/0.3 ML SYR SC SCH (17:00)
[2022-07-01] MEDS ORDERED: FLUCONAZOLE 100 MG TAB PO SCH (09:00)
== END 2022-06-30 21:47 | disposition expired | DRG 637 ==
LOC: ER 05:37 → ERHOLD 09:26 → ICU 15:58 → OBSVTOIN 06-26 08:55
PROVIDERS: ADMIT Internal Medicine; ATTEND Internal Medicine
PROC: 5A1D70Z Performance of Urinary Filtration, Intermittent, Less than 6 Hours Per Day (ICD-10-PCS; 2022-06-25)
PROC: 0D758ZZ Dilation of Esophagus, Via Natural or Artificial Opening Endoscopic (ICD-10-PCS; 2022-06-27)
PROC: 0DB68ZX Excision of Stomach, Via Natural or Artificial Opening Endoscopic, Diagnostic (ICD-10-PCS; 2022-06-27)
PROC: 0DB78ZX Excision of Stomach, Pylorus, Via Natural or Artificial Opening Endoscopic, Diagnostic (ICD-10-PCS; principal; 2022-06-27 15:46)
DX: E11.649 Type 2 diabetes mellitus with hypoglycemia without coma (principal); G93.41 Metabolic encephalopathy; I12.0 Hypertensive chronic kidney disease with stage 5 chronic kidney disease or end stage renal disease; E11.43 Type 2 diabetes mellitus with diabetic autonomic (poly)neuropathy; K31.84 Gastroparesis; Z79.4 Long term (current) use of insulin; F32.A Depression, unspecified; N40.0 Benign prostatic hyperplasia without lower urinary tract symptoms; E11.22 Type 2 diabetes mellitus with diabetic chronic kidney disease; N18.6 End stage renal disease; Z99.2 Dependence on renal dialysis; Z66 Do not resuscitate; Z51.5 Encounter for palliative care; F10.21 Alcohol dependence, in remission; K20.90 Esophagitis, unspecified without bleeding; K57.10 Diverticulosis of small intestine without perforation or abscess without bleeding; K44.9 Diaphragmatic hernia without obstruction or gangrene; Z20.822 Contact with and (suspected) exposure to COVID-19; R12 Heartburn; E11.51 Type 2 diabetes mellitus with diabetic peripheral angiopathy without gangrene; E11.69 Type 2 diabetes mellitus with other specified complication; E78.2 Mixed hyperlipidemia
CPT/HCPCS: 36415; 43239; 71045; 74176; 74230; 80048; 80053; 80061; 82150; 82948; 83036; 83690; 83735; 84100; 84443; 84681; 85025; 86704; 86706; 87340; 88305; 88342; 90962; 93005; 93306; 94799; 99252; 99285; G0378; J0360; J1170; J1610; J1650; J1885; J2405; J2765; J7030; J7799; Q9963